=== PATIENT | female | born 1995 | race Caucasian/White ===

== ENCOUNTER 2018-07-19 08:43 | Emergency (ER) | payer BC ==
[2018-07-19 09:09] VITALS: BP 112/70
--- NOTE | 2018-07-19 09:37 | UC ---
Throat Pain/Nasal Apul HPI - HPI Summary HPI Summary: Pt c/o sore throat and cough X 3 days. Pt has crohn's disease and is concerned may have strep. Pt is scheduled to have remicade infusion on 07/21/18. - History of Current Complaint Chief Complaint: UCRespiratory Stated Complaint: THROAT,CHEST BURNING Time Seen by Provider: 07/19/18 09:25 Hx Obtained From: Patient Hx Last Menstrual Period: 07/03/18 ?: No Onset/Duration: Gradual Onset, Lasting Days, Still Present Severity: Mild Pain Intensity: 4 Cough: None Associated Signs & Symptoms: Positive: Dysphagia - Epiglottits Risk Factors Epiglottis Risk Factors: Negative - Allergies/Home Medications Allergies/Adverse Reactions: Allergies Allergy/AdvReac Type Severity Reaction Status Date / Time No Known Allergies Allergy Verified 07/19/18 09:03 Home Medications: Home Medications Acetaminophen TAB* [Tylenol TAB*] 650 mg PO Q4H PRN 07/19/18 [History Confirmed 07/19/18] inFLIXimab* [Remicade*] 100 mg IV SEE INSTRUCTIONS 07/19/18 [History Confirmed 07/19/18] PMH/Surg Hx/FS Hx/Imm Hx Previously Healthy: Yes GI/ History: Other - crohn's - Surgical History Surgical History: Yes Surgery Procedure, Year, and Place: T&A - Family History Known Family History: Positive: Cardiac Disease - Social History Occupation: Student Lives: With Family Alcohol Use: Occasionally Substance Use Type: None Smoking Status (MU): Never Smoked Tobacco Have You Smoked in the Last Year: No Review of Systems All Other Systems Reviewed And Are Negative: Yes Constitutional: Positive: Chills Skin: Positive: Negative Eyes: Positive: Negative ENT: Positive: Sore Throat Respiratory: Positive: Cough Cardiovascular: Positive: Negative Gastrointestinal: Positive: Negative Genitourinary: Positive: Negative Motor: Positive: Negative Neurovascular: Positive: Negative Musculoskeletal: Positive: Negative Neurological: Positive: Negative Psychological: Positive: Negative Is Patient Immunocompromised?: No Physical Exam Triage Information Reviewed: Yes Appearance: Well-Appearing Vital Signs: Initial Vital Signs Temp 97.8 F 07/19/18 09:05 Pulse 74 07/19/18 09:05 Resp 16 07/19/18 09:05 BP 112/70 07/19/18 09:05 Pulse Ox 100 07/19/18 09:05 Vital Signs Reviewed: Yes Eye Exam: Normal ENT: Positive: Pharyngeal erythema Dental Exam: Normal Neck exam: Normal Respiratory Exam: Normal Cardiovascular Exam: Normal Musculoskeletal Exam: Normal Neurological Exam: Normal Psychological Exam: Normal Skin Exam: Normal Throat Pain/Nasal Course/Dx - Differential Dx/Diagnosis Differential Diagnosis/HQI/PQRI: Pharyngitis, Tonsillitis Provider Diagnosis: Sore throat (viral) Discharge - Sign-Out/Discharge Documenting (check all that apply): Patient Departure All imaging exams completed and their final reports reviewed: No Studies - Discharge Plan Condition: Stable Disposition: HOME Patient Education Materials: Pharyngitis (ED) Referrals: Parish Keller PA [Primary Care Provider] - If Needed - Billing Disposition and Condition Condition: STABLE Disposition: Home - Attestation Statements Provider Attestation: I was available for consult. This patient was seen by the CHRISSY. The patient was not presented to, seen by, or examined by me. EK
== END 2018-07-19 09:41 | disposition home or self-care (01) ==
LOC: UCCORT 08:43
DX: J02.9 Acute pharyngitis, unspecified (principal); K50.90 Crohn's disease, unspecified, without complications
CPT/HCPCS: 87651; 99201; G0463